=== PATIENT | female | born 1980 | race Caucasian/White ===

== ENCOUNTER 2019-10-17 16:04 | Emergency (ER) | payer MEDICAID, SELFPAY ==
[2019-10-17 16:05] VITALS: BP 130/75; PULSE 120; RESP 20; TEMP 37.2; O2SAT 98; BMI 32.8
--- NOTE | 2019-10-17 16:21 | CT_ITS ---
STUDY: CT ABDOMEN AND PELVIS WITHOUT CONTRAST REASON FOR EXAM: Female, 39 years old. RT FLANK PAIN AND UTI SYMPTOMS RADIATION DOSAGE (If Supplied By Facility): CTDIvol = ( 12.46 ) mGy, DLP = ( 694.20 ) mGycm TECHNIQUE: Transaxial images were obtained from the dome of the diaphragm to the symphysis pubis without oral contrast, and without intravenous contrast. Sagittal and coronal images were reconstructed. Individualized dose optimization techniques were used for this CT. COMPARISON: None. FINDINGS: The visualized lung bases are unremarkable. Normal liver. No intrahepatic biliary duct dilatation or liver mass. The gallbladder is contracted. Normal spleen. Normal pancreas. Normal bilateral adrenal glands. Mild right hydronephrosis and hydroureter are present with inflammatory stranding due to a recently passed tiny 1 mm stone which is seen in the right side of the bladder on image 164/204 series 2. No additional radiopaque stones are seen in either kidney or the ureter. Normal left kidney. No renal masses. Normal visualized stomach. Normal small intestine. Normal colon. No bowel dilatation or obstruction. No free air or free fluid. The appendix is visualized and appears normal. Normal abdominal aorta. Normal inferior vena cava. Normal retroperitoneum. Normal urinary bladder. Normal visualized uterus. Mild body wall edema is present. A healed midline surgical incision tract of the anterior abdominal wall is present. Normal osseous structures. CT/Abdomen/Pelvis without Cont IMPRESSION: 1. Mild right hydronephrosis and hydroureter are present with inflammatory stranding due to a recently passed tiny 1 mm stone which is seen in the right side of the bladder on image 164/204 series 2. Associated urinary tract infection is a possibility, however this is a clinical diagnosis. Electronically Signed: Wan Funes MD at 18:19 EST , Service support ,
[2019-10-17] MEDS: Ketorolac 30 MG/ML Syringe IV (16:39)
[2019-10-17] MEDS: 0.9% Normal Saline 1,000 ML 150 ML IV (16:39)
--- NOTE | 2019-10-17 16:48 | ED.VISSUMM ---
- ER Visit Summary Date of Service: 10/17/19 Chief Complaint: [Dysuria] History of Present Illness: The patient is a 39 F [presents to the emergency department with dysuria symptoms for 3 to 4 days. Patient states that she was treated with nitrofurantoin 3 to 4 weeks ago for urinary tract infection however the antibiotic made her constipated so she stopped taking it before she was finished with it. Patient last bowel movement was yesterday. He describes frequency and urgency. Has any hematuria. Patient also complains of pain into the right side of her back. She rates her pain an 8 or 9 out of 10. She has had some mild nausea but no vomiting. She is had subjective fever and chills.] Physical Examination: [HEENT-PERRLA, EOMI. Cranial nerves II through XII grossly intact. TMs clear. Mucous membranes moist. No adenopathy. Cardiovascular-regular rate and rhythm without murmur or ectopy Lungs-clear to auscultation, chest wall stable without crepitus or subcu emphysema Abdomen-normoactive bowel sounds, soft. Patient has tenderness palpation over the suprapubic region as well as the right lower quadrant and left lower quadrant. Patient has CVA tenderness on the right. There is no rebound, rigidity, or peritoneal signs. Extremities-intact ?4, normal range of motion, normal pulses, atraumatic] Test Results: [CBC with differential showed a white count of 14.7, hemoglobin 12, hematocrit 38, platelets 297. Chemistries unremarkable. Urinalysis was positive for 500 leukocyte esterase as well as 25-50 WBCs and 0-[address] flank obtained showed mild right hydroureter and hydronephrosis with a small calcification in the bladder measuring 1 mm in their speculation she may have passed a kidney stone recently.] Emergency Department Course and Treatment: [Patient was given a liter normal same fluid bolus. Patient was medicated with Toradol 30 mg IV and her pain resolved. Patient was given Rocephin 1 g IV. Urine culture was sent.] Treatment Plan: [We will be treated with Bactrim and Pyridium.] Disposition: [Discharged home stable condition.] Impression: [Urinary tract infection Kidney stone-recently passed] This note was generated with [employer] software. It may contain incorrect words, spelling, and punctuation that were not noted in review of the chart prior to signing ED Disposition - Plan for ED Patient: Referrals: Simon Ingram MD [Primary Care Provider] -
[2019-10-17 16:49] LABS: Color, Urine Yellow (Yellow); Glucose, Dipstick 1000 mg/dl (Normal); Ketone-Dipstick 5 mg/dl (Negative); Leukocyte Esterase-Dipstick 500 /ul (Negative); Nitrite-Dipstick Negative (Negative); Occult Blood-Urine 25 /ul (Negative); Protein-Dipstick 30 mg/dl (Negative); Specific Gravity, Urine 1.015 (1.002-1.030); Urine Bilirubin Dipstick Negative (Negative); Urine Clarity Cloudy (Clear); Urine Urobilinogen 1 mg/dl (Normal); Urine pH 6.5 (5.0 - 8.0)
[2019-10-17 16:52] VITALS: PULSE 120; TEMP 37.2
[2019-10-17 16:55] LABS: Mucous, Urine RARE /hpf (<or=2+)
[2019-10-17 16:57] LABS: Bacteria 2+ /hpf (None Seen); Red Blood Cells-Urine 0-5 SEEN /hpf (0-5); Squamous Epithelial Cells - UA 5-10 SEEN /hpf (5-10); White Blood Cells 25-50 SEEN /hpf (0-5)
[2019-10-17 17:08] LABS: Absolute Lymphocyte Count 1.75 X10^3/uL (0.83-4.51); Absolute Neutrophil Count 11.8 X10^3/uL (2.0-7.7); Basophil# 0.02 X10^3/uL; Basophil% 0.1 % (0-1); Eosinophil# 0.07 X10^3/uL; Eosinophils% 0.5 % (0-5); Hematocrit 38.3 % (37-47); Hemoglobin 12.1 g/dL (12.0-15.0); Lymphocyte # 1.75 X10^3/ul (4.0); Lymphocyte % 11.9 % (19-41); Mean Corp Hgb Conc 31.6 g/dL (32-36); Mean Corpuscular Hgb 25.1 pg (27.0-32.0); Mean Corpuscular Volume 79.5 fL (81-99); Mean Platelet Vol. 10.7 fl (6.2-12.0); Monocyte# 1.04 X10^3/uL; Monocyte% 7.1 % (0-10); NRBC Flagged by Analyzer 0 % (0-5); Neutrophil # 11.75 X10^3/uL (2.7-7.7); Neutrophil % 79.9 % (47-70); Platelet Count 297 K/mm3 (150-450); RBC Distribution Width CV 15.2 % (11.6-14.6); RBC Distribution Width SD 43.5 fl (35.1-43.9); Red Blood Count 4.82 M/mm3 (4.2-5.4); White Blood Count 14.7 K/mm3 (4.4-11.0)
[2019-10-17 17:20] LABS: Anion Gap 7 (5-15); BUN 10 mg/dL (7-18); Calcium,Total 8.6 mg/dL (8.5-10.1); Chloride 104 mmol/L (98-107); Creatinine, Serum 0.77 mg/dL (0.55-1.02); EST Glomerular Filtration Rate 89 mL/min (>60); Est Glom Filt Rate - Afr Amer 107 mL/min (>60); Estimated Creatinine Clearance 81.14 ml/min; Glucose 205 mg/dL (74-106); Potassium 3.8 mmol/L (3.5-5.1); Sodium Level 138 mmol/L (136-145)
[2019-10-17] MEDS: Ceftriaxone 1 GM/50 ML BAG IV (17:36)
[2019-10-17] MEDS: Phenazopyridine 95 MG Tablet 190 MG PO (18:11)
[2019-10-17 18:13] VITALS: BP 107/61; PULSE 93; RESP 16; TEMP 36.6; O2SAT 99
--- NOTE | 2019-10-17 18:26 | ED.DEP ---
ED Disposition - Plan for ED Patient: Instructions: Bladder Infection, Female (Adult), KIDNEY STONE, Passed Prescriptions: Smz/Tmp Ds [Bactrim Ds] 1 tab PO BID #14 tab Transmission Status: Pending to [facility] Phenazopyridine HCl [Pyridium] 200 mg PO BID PRN PRN #10 tab PRN Reason: Pain Transmission Status: Pending to [facility] Referrals: Simon Ingram MD [Primary Care Provider] - 3-5 Days
== END 2019-10-17 18:42 | disposition home or self-care (01) ==
LOC: ED 16:45
PROVIDERS: Emergency Provider Emergency Medicine; Family Provider Family Medicine; PCP Family Medicine
DX: N39.0 Urinary tract infection, site not specified (principal); Z87.442 Personal history of urinary calculi; E10.9 Type 1 diabetes mellitus without complications; M79.7 Fibromyalgia; Z87.440 Personal history of urinary (tract) infections; Z79.4 Long term (current) use of insulin; Z72.0 Tobacco use
CPT/HCPCS: 74176; 80048; 81001; 85025; 87086; 87088; 87186; 96361; 96365; 96375; 99283; J7030